=== PATIENT | female | born 1945 | race Caucasian/White ===

== ENCOUNTER 2018-04-21 07:36 | Emergency (ER) | payer MEDICARE ==
[~2018-04-21] VITALS: Ht 172.7 cm; Wt 106.8 kg
[2018-04-21] MEDS ORDERED: PANTOPRAZOLE SO40 MG PO (07:47)
[2018-04-21] MEDS ORDERED: IMODIUM2 MG PO (07:48)
[2018-04-21] MEDS ORDERED: BALSALAZIDE750 MG PO (07:48)
[2018-04-21] MEDS ORDERED: EQUALACTIN (07:48)
[2018-04-21 08:18] LABS: URINE BILIRUBIN - DIPSTICK NEGATIVE (NEGATIVE); URINE BLOOD DIPSTICK LARGE (NEGATIVE); URINE COLOR YELLOW; URINE GLUCOSE - DIPSTICK NEGATIVE (NEGATIVE); URINE KETONE NEGATIVE (NEGATIVE); URINE PH 6.5 (4.5-8.0); URINE PROTEIN - DIPSTICK TRACE mg/dL (NEG-TRACE); URINE UROBILINOGEN - DIPSTICK 0.2 E.U./dL (0.2)
[2018-04-21 08:22] LABS: URINE BACTERIA RARE hpf; URINE EPITHELIAL CELLS RARE EPI/hpf (0-FEW); URINE LEUK ESTERASE MODERATE (NEGATIVE); URINE NITRITE - DIPSTICK NEGATIVE (Negative)
[2018-04-21] MEDS ORDERED: CEPHALEXIN500 M1 PO (08:25)
[2018-04-21 08:27] VITALS: BP 148/80
== END 2018-04-21 08:33 | disposition home or self-care (01) ==
LOC: ED 07:36
PROVIDERS: Family Medicine
PROC: 0T9B70Z Drainage of Bladder with Drainage Device, Via Natural or Artificial Opening (ICD-10-PCS; principal; 2018-04-21)
DX: N39.0 Urinary tract infection, site not specified (principal); R35.0 Frequency of micturition; R33.9 Retention of urine, unspecified; B96.20 Unspecified Escherichia coli [E. coli] as the cause of diseases classified elsewhere

== ENCOUNTER 2018-10-10 10:04 | Emergency (ER) | payer MEDICARE, OTHER ==
[~2018-10-10] VITALS: Ht 172.7 cm; Wt 106.8 kg
[~2018-10-10 10:04] MED LIST: BALSALAZIDE750 MG PO; CEPHALEXIN500 M1 PO; EQUALACTIN; IMODIUM2 MG PO; PANTOPRAZOLE SO40 MG PO
[2018-10-10] MEDS ORDERED: MELOXICAM7.5 MG PO (10:21)
[2018-10-10] MEDS ORDERED: VITAMIN B-12500 MCG PO (10:22)
[2018-10-10] MEDS ORDERED: MULTI VIT PO (10:22)
[2018-10-10] MEDS ORDERED: BUDESONID2 IN (10:23)
[2018-10-10 11:04] LABS: HEMATOCRIT 45.7 % (37.0-47.0); HEMOGLOBIN 14.7 g/dl (12.0-16.0); IMMATURE GRANULOCYTES 0.3 % (0.0-5.0); MEAN CELL VOLUME 91.4 fL CALC (80.0-100.0); MEAN CORPUSCULAR HGB 29.4 pG CALC (26.0-32.0); MEAN CORPUSCULAR HGB CONC 32.2 g/L CALC (32.0-36.0); NEUT# 8.42 thou/uL (2.00-7.15)
[2018-10-10 11:16] LABS: ANION GAP 15 (6-22 (CALC)); BUN 12 mg/dL (8-23); BUN/CREATININE RATIO 17 (12-20 (CALC)); CARBON DIOXIDE 26 mmol/l (22-30); CHLORIDE 105 mmol/l (95-108); CREATININE 0.7 mg/dL (0.5-1.0); GFR > 60 ML/MIN (>=60 (CALC)); GFR FOR AFR.AMER. > 60 ML/MIN (>=60 (CALC)); POTASSIUM 3.5 mmol/l (3.5-5.1); SODIUM 142 mmol/l (137-146)
[2018-10-10] MEDS ORDERED: DOXYCYC MONO100 M2 PO (11:35)
[2018-10-10 11:38] VITALS: BP 133/60
== END 2018-10-10 11:45 | disposition home or self-care (01) ==
LOC: ED 10:04
PROVIDERS: Family Medicine
DX: J06.9 Acute upper respiratory infection, unspecified (principal); I44.7 Left bundle-branch block, unspecified; Z87.01 Personal history of pneumonia (recurrent)

== ENCOUNTER 2019-01-12 07:05 | Inpatient (IN) | payer MEDICARE, OTHER ==
[~2019-01-12] VITALS: Ht 172.7 cm; Wt 116.0 kg
[~2019-01-12 07:05] MED LIST changes: +BUDESONID2 IN; +DOXYCYC MONO100 M2 PO; +MELOXICAM7.5 MG PO; +MULTI VIT PO; +VITAMIN B-12500 MCG PO
[2019-01-12 07:42] LABS: HEMATOCRIT 46.1 % (37.0-47.0); IMMATURE GRANULOCYTES 0.3 % (0.0-5.0); MEAN CELL VOLUME 92.8 fL CALC (80.0-100.0); MEAN CORPUSCULAR HGB 30.2 pG CALC (26.0-32.0); MEAN CORPUSCULAR HGB CONC 32.5 g/L CALC (32.0-36.0); NEUT# 3.91 thou/uL (2.00-7.15); RED BLOOD COUNT 4.97 mill/uL (4.20-5.60); RED CELL DISTRI WIDTH 13.2 % (11.5-15.5)
[2019-01-12] MEDS ORDERED: UCERIS9 MG PO (07:42)
[2019-01-12] MEDS ORDERED: DIPHENOXYLATE H1 TAB PO (07:45)
[2019-01-12] MEDS ORDERED: VENTOLIN HFA IN (07:47)
[2019-01-12 07:48] LABS: ANION GAP 14 (6-22 (CALC)); BUN 15 mg/dL (8-23); BUN/CREATININE RATIO 24 (12-20 (CALC)); CARBON DIOXIDE 27 mmol/l (22-30); CHLORIDE 104 mmol/l (95-108); CREATININE 0.6 mg/dL (0.5-1.0); GFR > 60 ML/MIN (>=60 (CALC)); GFR FOR AFR.AMER. > 60 ML/MIN (>=60 (CALC)); POTASSIUM 3.7 mmol/l (3.5-5.1); SODIUM 142 mmol/l (137-146)
[2019-01-12 11:42] VITALS: BP 145/85
[2019-01-12 14:31] VITALS: BP 124/79
[2019-01-12 16:42] VITALS: BP 131/66
[2019-01-12 19:11] VITALS: BP 129/75
[2019-01-12 23:40] VITALS: BP 127/73
[2019-01-13 03:15] VITALS: BP 131/68
[2019-01-13 05:38] LABS: MEAN CELL VOLUME 93.6 fL CALC (80.0-100.0); MEAN CORPUSCULAR HGB 30.2 pG CALC (26.0-32.0); MEAN CORPUSCULAR HGB CONC 32.2 g/L CALC (32.0-36.0); RED BLOOD COUNT 4.24 mill/uL (4.20-5.60); RED CELL DISTRI WIDTH 13.5 % (11.5-15.5)
[2019-01-13 05:40] LABS: HEMATOCRIT 39.7 % (37.0-47.0); HEMOGLOBIN 12.8 g/dl (12.0-16.0)
[2019-01-13 05:57] LABS: ALBUMIN 3.3 g/dL (3.2-5.0); ALKALINE PHOSPHATASE 55 u/l (38-126); ANION GAP 12 (6-22 (CALC)); BILIRUBIN, TOTAL 0.6 mg/dL (0.0-1.4); BUN 8 mg/dL (8-23); BUN/CREATININE RATIO 19 (12-20 (CALC)); CARBON DIOXIDE 22 mmol/l (22-30); CHLORIDE 112 mmol/l (95-108); CREATININE 0.4 mg/dL (0.5-1.0); GFR > 60 ML/MIN (>=60 (CALC)); GFR FOR AFR.AMER. > 60 ML/MIN (>=60 (CALC)); POTASSIUM 4.2 mmol/l (3.5-5.1); SGOT/AST 26 u/l (9-36); SODIUM 142 mmol/l (137-146)
[2019-01-13 08:16] VITALS: BP 127/68
[2019-01-13 10:30] VITALS: BP 135/62
[2019-01-13 14:40] VITALS: BP 128/67
[2019-01-13 19:10] VITALS: BP 125/65
[2019-01-14] VITALS (10 sets, daily range): BP systolic 116–158; BP diastolic 43–85
[2019-01-14 05:16] LABS: HEMATOCRIT 39.2 % (37.0-47.0); HEMOGLOBIN 12.4 g/dl (12.0-16.0); MEAN CELL VOLUME 95.1 fL CALC (80.0-100.0); MEAN CORPUSCULAR HGB 30.1 pG CALC (26.0-32.0); MEAN CORPUSCULAR HGB CONC 31.6 g/L CALC (32.0-36.0); RED BLOOD COUNT 4.12 mill/uL (4.20-5.60); RED CELL DISTRI WIDTH 13.8 % (11.5-15.5)
[2019-01-14 05:45] LABS: ANION GAP 14 (6-22 (CALC)); BUN 11 mg/dL (8-23); BUN/CREATININE RATIO 19 (12-20 (CALC)); CARBON DIOXIDE 23 mmol/l (22-30); CHLORIDE 110 mmol/l (95-108); CREATININE 0.6 mg/dL (0.5-1.0); GFR > 60 ML/MIN (>=60 (CALC)); GFR FOR AFR.AMER. > 60 ML/MIN (>=60 (CALC)); POTASSIUM 4.1 mmol/l (3.5-5.1); SODIUM 143 mmol/l (137-146)
[2019-01-14 14:41] LABS: HEMOGLOBIN 12.2 g/dl (12.0-16.0); IMMATURE GRANULOCYTES 0.9 % (0.0-5.0); MEAN CELL VOLUME 94.5 fL CALC (80.0-100.0); MEAN CORPUSCULAR HGB 30.3 pG CALC (26.0-32.0); MEAN CORPUSCULAR HGB CONC 32.1 g/L CALC (32.0-36.0); NEUT# 10.13 thou/uL (2.00-7.15); RED BLOOD COUNT 4.02 mill/uL (4.20-5.60)
[2019-01-14 15:00] LABS: ACT PARTIAL THROMBO TIME 24.9 SECONDS (20.0-32.5); PROTHROMBIN TIME 10.2 SECONDS (9.0-12.5)
== END 2019-01-14 16:00 | DRG 202 ==
LOC: ED 07:05 → ED-I 09:27 → ED 09:40 → ICU 09:41 → MS2 09:41 → ICU 01-13 11:20 → MS2 01-13 11:20 → ICU 01-14 13:42
PROVIDERS: Family Medicine; Internal Medicine; ADMIT Internal Medicine; ATTEND Internal Medicine
DX: J40 Bronchitis, not specified as acute or chronic (principal); E87.2 Acidosis; I47.2 Ventricular tachycardia; R06.03 Acute respiratory distress; R79.89 Other specified abnormal findings of blood chemistry; I10 Essential (primary) hypertension; R07.9 Chest pain, unspecified; K21.9 Gastro-esophageal reflux disease without esophagitis; K22.70 Barrett's esophagus without dysplasia; Z86.711 Personal history of pulmonary embolism; E66.9 Obesity, unspecified; Z68.38 Body mass index [BMI] 38.0-38.9, adult
CPT/HCPCS: G0378; J1644; J1650; Q9967

== ENCOUNTER 2020-09-04 12:08 | Emergency (ER) | payer MEDICARE, OTHER ==
[~2020-09-04 12:08] MED LIST changes: +DIPHENOXYLATE H1 TAB PO; +UCERIS9 MG PO; +VENTOLIN HFA IN
[2020-09-04 13:10] VITALS: BP 124/61
[2020-09-04 13:10] LABS: HEMATOCRIT 42.8 % (37.0-47.0); HEMOGLOBIN 13.5 g/dl (12.0-16.0); IMMATURE GRANULOCYTES 0.3 % (0.0-5.0); MEAN CORPUSCULAR HGB 29.3 pG CALC (26.0-32.0); MEAN CORPUSCULAR HGB CONC 31.5 g/dL CAL (32.0-36.0); NEUT# 4.77 thou/uL (2.00-7.15); RED BLOOD COUNT 4.6 mill/uL (4.20-5.60)
[2020-09-04 13:29] LABS: ALBUMIN 4.4 g/dL (3.2-5.0); ALKALINE PHOSPHATASE 74 u/l (38-126); ANION GAP 11 (6-22 (CALC)); BILIRUBIN, TOTAL 0.9 mg/dL (0.0-1.4); BUN 17 mg/dL (8-23); BUN/CREATININE RATIO 18 (12-20 (CALC)); CARBON DIOXIDE 29 mmol/l (22-30); CHLORIDE 101 mmol/l (95-108); GFR 54 ML/MIN (>=60 (CALC)); GFR FOR AFR.AMER. > 60 ML/MIN (>=60 (CALC)); LIPASE 74 u/l (23-300); POTASSIUM 4.4 mmol/l (3.5-5.1); SGOT/AST 73 u/l (9-36); SODIUM 136 mmol/l (137-146); TOTAL PROTEIN 7.8 g/dL (6.3-8.2)
== END 2020-09-04 13:49 | disposition home or self-care (01) ==
LOC: ED 12:08
PROVIDERS: Family Medicine
DX: K92.1 Melena (principal); I10 Essential (primary) hypertension; K21.9 Gastro-esophageal reflux disease without esophagitis; Z79.82 Long term (current) use of aspirin; Z86.711 Personal history of pulmonary embolism

== ENCOUNTER 2020-09-26 09:04 | Emergency (ER) | payer MEDICARE, OTHER ==
[~2020-09-26] VITALS: Ht 172.7 cm; Wt 111.3 kg
[2020-09-26] MEDS ORDERED: ENTRESTO 24-261 TAB PO (10:02)
[2020-09-26] MEDS ORDERED: MIDODRINE HYDR2.5 MG PO (10:02)
[2020-09-26] MEDS ORDERED: SPIRONOLACTONE50 MG PO (10:03)
[2020-09-26] MEDS ORDERED: ASPIRIN 81 LOW81 MG PO (10:03)
[2020-09-26] MEDS ORDERED: CARVEDILOL12.5 MG PO (10:03)
[2020-09-26 10:04] LABS: HEMATOCRIT 43.4 % (37.0-47.0); HEMOGLOBIN 13.8 g/dl (12.0-16.0); IMMATURE GRANULOCYTES 0.4 % (0.0-5.0); MEAN CELL VOLUME 92.5 fL CALC (80.0-100.0); MEAN CORPUSCULAR HGB 29.4 pG CALC (26.0-32.0); MEAN CORPUSCULAR HGB CONC 31.8 g/dL CAL (32.0-36.0); NEUT# 4.78 thou/uL (2.00-7.15); RED BLOOD COUNT 4.69 mill/uL (4.20-5.60); RED CELL DISTRI WIDTH 13.9 % (11.5-15.5)
[2020-09-26] MEDS ORDERED: BUPROPN HCL300 MG PO (10:04)
[2020-09-26] MEDS ORDERED: CLARITIN10 M1 PO (10:04)
[2020-09-26] MEDS ORDERED: LIPITOR20 MG PO (10:04)
[2020-09-26 10:16] LABS: URINE BILIRUBIN - DIPSTICK NEGATIVE (NEGATIVE); URINE BLOOD DIPSTICK NEGATIVE (NEGATIVE); URINE COLOR YELLOW; URINE GLUCOSE - DIPSTICK NEGATIVE (NEGATIVE); URINE KETONE NEGATIVE (NEGATIVE); URINE PH 7.5 (4.5-8.0); URINE PROTEIN - DIPSTICK NEGATIVE (NEG-TRACE); URINE UROBILINOGEN - DIPSTICK 0.2 E.U./dL (0.2)
[2020-09-26 10:18] LABS: ALBUMIN 4.1 g/dL (3.2-5.0); ALKALINE PHOSPHATASE 79 u/l (38-126); ANION GAP 11 (6-22 (CALC)); BUN 11 mg/dL (8-23); BUN/CREATININE RATIO 12 (12-20 (CALC)); CARBON DIOXIDE 28 mmol/l (22-30); CHLORIDE 98 mmol/l (95-108); GFR 54 ML/MIN (>=60 (CALC)); GFR FOR AFR.AMER. > 60 ML/MIN (>=60 (CALC)); POTASSIUM 4.5 mmol/l (3.5-5.1); SGOT/AST 55 u/l (9-36); SODIUM 133 mmol/l (137-146); TOTAL PROTEIN 7.6 g/dL (6.3-8.2)
[2020-09-26 10:42] LABS: URINE LEUK ESTERASE SMALL (NEGATIVE); URINE NITRITE - DIPSTICK NEGATIVE (Negative)
[2020-09-26 10:43] LABS: URINE SQUAMOUS EPITHELIAL CELL FEW EPI/hpf (0-FEW)
[2020-09-26] MEDS ORDERED: NITROFURANTN100 M2 PO (10:56)
[2020-09-26 11:45] VITALS: BP 118/72
== END 2020-09-26 11:45 | disposition home or self-care (01) ==
LOC: ED 09:04
PROVIDERS: Family Medicine
DX: N39.0 Urinary tract infection, site not specified (principal); I11.0 Hypertensive heart disease with heart failure; I50.9 Heart failure, unspecified; E78.5 Hyperlipidemia, unspecified; K21.9 Gastro-esophageal reflux disease without esophagitis; I25.2 Old myocardial infarction; B95.5 Unspecified streptococcus as the cause of diseases classified elsewhere; Z86.711 Personal history of pulmonary embolism; Z20.822 Contact with and (suspected) exposure to COVID-19

== ENCOUNTER 2021-10-10 01:35 | Emergency (ER) | payer MEDICARE, OTHER ==
[~2021-10-10] VITALS: Ht 172.7 cm; Wt 113.0 kg
[~2021-10-10 01:35] MED LIST changes: +ASPIRIN 81 LOW81 MG PO; +BUPROPN HCL300 MG PO; +CARVEDILOL12.5 MG PO; +CLARITIN10 M1 PO; +ENTRESTO 24-261 TAB PO; +LIPITOR20 MG PO; +MIDODRINE HYDR2.5 MG PO; +NITROFURANTN100 M2 PO; +SPIRONOLACTONE50 MG PO
[2021-10-10 01:55] VITALS: BP 191/77
[2021-10-10 02:00] VITALS: BP 175/95
[2021-10-10 02:15] VITALS: BP 133/77
[2021-10-10 02:30] VITALS: BP 142/84
[2021-10-10 02:45] VITALS: BP 124/76
[2021-10-10 02:50] LABS: HEMATOCRIT 43.1 % (37.0-47.0); HEMOGLOBIN 13.9 g/dl (12.0-16.0); IMMATURE GRANULOCYTES 0.2 % (0.0-5.0); MEAN CELL VOLUME 95.8 fL CALC (80.0-100.0); MEAN CORPUSCULAR HGB 30.9 pG CALC (26.0-32.0); MEAN CORPUSCULAR HGB CONC 32.3 g/dL CAL (32.0-36.0); NEUT# 5.94 thou/uL (2.00-7.15); RED BLOOD COUNT 4.5 mill/uL (4.20-5.60); RED CELL DISTRI WIDTH 13.5 % (11.5-15.5)
[2021-10-10 03:00] VITALS: BP 124/76
[2021-10-10 04:49] LABS: ALBUMIN 3.7 g/dL (3.2-5.0); BILIRUBIN, TOTAL 0.5 mg/dL (0.0-1.4); CREATININE 1.1 mg/dL (0.5-1.0); POTASSIUM 4.4 mmol/l (3.5-5.1)
[2021-10-10 04:53] LABS: ACT PARTIAL THROMBO TIME 25.1 SECONDS (20.0-32.5); PROTHROMBIN TIME 10.1 SECONDS (9.0-12.5)
[2021-10-11] MEDS ORDERED: KAPSPARGO SPRIN50 MG (11:09)
== END 2021-10-10 03:02 | disposition home or self-care (01) ==
LOC: ED 01:35
DX: K64.4 Residual hemorrhoidal skin tags (principal); I11.0 Hypertensive heart disease with heart failure; I50.9 Heart failure, unspecified; E78.5 Hyperlipidemia, unspecified; K21.9 Gastro-esophageal reflux disease without esophagitis; I25.2 Old myocardial infarction